=== PATIENT | male | born 2000 | race Caucasian/White ===

== ENCOUNTER 2024-12-20 15:33 | Emergency (ER) | payer OTHER ==
[2024-12-20 16:28] VITALS: BP 152/75; PULSE 102; RESP 16; TEMP 98.4; BMI 28.5
[2024-12-20] MEDS ORDERED: DIPHTH,PERTUSS(ACELL),TET 0.5 ML DISP.SYRIN IM ONE (18:22)
[2024-12-20] MEDS ORDERED: ACETAMINOPHEN 500 MG TABLET (FP) ONE (18:22)
[2024-12-20] MEDS: ACETAMINOPHEN 500 MG TABLET (FP) PO ONE (18:25)
[2024-12-20] MEDS: DIPHTH,PERTUSS(ACELL),TET 0.5 ML DISP.SYRIN IM ONE (18:32)
== END 2024-12-20 18:33 | disposition home or self-care (01) ==
LOC: JER 15:33
PROC: 3E0234Z Introduction of Serum, Toxoid and Vaccine into Muscle, Percutaneous Approach (ICD-10-PCS; principal; 2024-12-20)
DX: S00.81XA Abrasion of other part of head, initial encounter (principal); Z23 Encounter for immunization; W18.30XA Fall on same level, unspecified, initial encounter
CPT/HCPCS: 70450-TC; 90715; 99284-25